=== PATIENT | female | born 1950 | race Caucasian/White ===

== ENCOUNTER → 2016-10-10 | Outpatient (CLI) | payer OTHER ==
[2015-10-26 15:10] VITALS: BP 110/50
[~2016-10-10] MED LIST: ALPR0.5T6 PO; ASPI325T4 PO; BUTA1CAP29 PO; BUTA1TAB23 PO; ERYT250C8 PO; ESCI20TA PO; ESZO2TAB PO; LISI1TAB5 PO; LOVA20TA2 PO; OMEP20CA9 PO; OXYC1TAB7 PO; PANT40TA5 PO; ZOLP10TA4 PO
--- NOTE | 2016-10-10 16:46 | RAD ---
Carotid ultrasound, 10/10/2016: History: Carotid stenosis Duplex evaluation of the carotid arteries in the neck was performed including grayscale, color-flow and spectral Doppler analysis. There are moderate scattered plaques in the common carotid arteries and at the carotid bifurcations. The plaques are partially calcified. On the right, the peak systolic velocity in the internal carotid artery is 100 cm/s. With an end-diastolic velocity of 33 cm/s. The internal carotid to common carotid artery ratio is 1.3. On the left the peak systolic velocity in the internal carotid artery is 118 cm/s with an end-diastolic velocity of 27 cm/s. The internal carotid artery to common carotid artery ratio is 1.2. These Doppler findings suggest narrowing in the 0-50% diameter range. Antegrade flow is present in both vertebral arteries in the neck. IMPRESSION: Moderate atherosclerotic plaquing at both carotid bifurcations with underlying luminal narrowing in the 0-50% diameter range bilaterally. Note: Stenosis calculations for CT, MRA and conventional angiography are based upon determination of the distal ICA diameter in accordance with the NASCET methodology. Stenosis calculations for Doppler studies are derived from validated velocity criteria which are known to correlate with NASCET methodology of determining stenosis.
== END | disposition home or self-care (01) ==
LOC: US 15:04
PROVIDERS: ATTEND Psychiatry & Neurology Neurology
DX: I65.23 Occlusion and stenosis of bilateral carotid arteries (principal)
CPT/HCPCS: 93880

== ENCOUNTER → 2018-04-08 | Outpatient (CLI) | payer OTHER ==
[2015-10-26 15:10] VITALS: BP 110/50
[~2018-04-08] MED LIST changes: -ASPI325T4 PO; +ASPI325T8 PO; -ESCI20TA PO; +ESCITALOPRAM OX20 MG PO; -ESZO2TAB PO; +ESZO2TAB26 PO
--- NOTE | 2018-04-08 10:50 | RAD ---
DATE: 04/08/2018 EXAM: MAMMO FRED LEILA BILAT, BREAST BILATERAL HISTORY: Left breast lump COMPARISON: None available This study was interpreted with the benefit of Computerized Aided Detection (CAD). Breast Density: HETERO The breast parenchyma is heterogenously dense, which could reduce sensitivity of mammography. Breast parenchyma level C. FINDINGS: Bilateral breast implants are in place. Routine and implant exclusion views were obtained of both breasts in the CC and MLO projections. 3-D tomosynthesis imaging was also performed with an implant exclusion technique. The breast implants are unremarkable. There are multiple coarse benign type calcifications in both breasts. No breast mass or suspicious microcalcifications are seen. A skin marker was placed on the skin surface laterally on the left in the area of reported palpable concern. No underlying mass is seen. Left breast ultrasound, 04/08/2018: A targeted ultrasound exam of the left breast was performed at the 3:00 location in the area of palpable concern. There is only a small amount of breast tissue evident along the anterior aspect of the implant at this level. No mass or unusual fluid collection is seen. IMPRESSION: 1. Bilateral breast implants. 2. No mammographic evidence of malignancy in either breast. 3. No mammographic or sonographic correlate is identified for the area of palpable concern in the left breast. Clinical surveillance is suggested. BI-RADS CATEGORY: 2 BENIGN FINDING(S) RECOMMENDED FOLLOW-UP: 12M 12 MONTH FOLLOW-UP PQRS compliance statement: Patient information was entered into a reminder system with a target due date for the next mammogram. Mammography is a sensitive method for finding small breast cancers, but it does not detect them all and is not a substitute for careful clinical examination. A negative mammogram does not negate a clinically suspicious finding and should not result in delay in biopsying a clinically suspicious abnormality. "Our facility is accredited by the [employer] Mammography Program."
== END | disposition home or self-care (01) ==
LOC: MAMMO 09:33
PROVIDERS: ATTEND Family Medicine
DX: N63.42 Unspecified lump in left breast, subareolar (principal); R92.1 Mammographic calcification found on diagnostic imaging of breast
CPT/HCPCS: 76641; 77066; G0279; 77062

== ENCOUNTER → 2018-06-04 | Outpatient (CLI) | payer OTHER ==
[2015-10-26 15:10] VITALS: BP 110/50
--- NOTE | 2018-06-04 16:35 | RAD ---
Examination: CT LOW DOSE LUNG SCREENING History: LUNG CA SCREENING 06/17 PPD HISTORY SMOKER NO PREV Comparison/Correlation: None Findings: Axial images of the chest were obtained without contrast according to low-dose lung cancer screening CT protocol. Incidental note is made of bilateral breast implants. The tracheobronchial tree is unremarkable. Severe centrilobular emphysematous involvement of the lung aguayo is present. There is no suspicious pulmonary nodule or mass lesion. No suspicious consolidation. No pleural or pericardial effusion. No enlarged thoracic lymph nodes. Significant calcification of the right common carotid artery is incidentally seen. Significant calcification of the left circumflex, left main, and right coronary arteries is present especially at the proximal aspects. Opacification of the thoracic aorta noted. Partially visualized abdomen is unremarkable other than significant opacification of the abdominal aorta. Bony structures are unremarkable for patient's age. Impression: Lungs rads category 1-negative. Annual low-dose lung cancer screening CT should be considered. Severe centrilobular emphysema. Electronically signed by: Ad Rico MD (06/04/2018 4:31 PM) [facility]
== END | disposition home or self-care (01) ==
LOC: CT 10:35
PROVIDERS: ATTEND Family Medicine
DX: Z12.2 Encounter for screening for malignant neoplasm of respiratory organs (principal); J43.2 Centrilobular emphysema; Z87.891 Personal history of nicotine dependence
CPT/HCPCS: G0297

== ENCOUNTER → 2019-08-12 | Outpatient (CLI) | payer MEDICARE ==
[2019-01-05 10:20] VITALS: BP 133/88
[~2019-08-12] MED LIST changes: +LISI1TAB19 PO; -LISI1TAB5 PO; +OMEP20CA16 PO; -OMEP20CA9 PO; -PANT40TA5 PO; +PANT40TA77 PO; +SUCR1TAB35 PO
--- NOTE | 2019-08-12 14:25 | KCIC ---
INDICATION: Atherosclerosis COMPARISON: None. TECHNIQUE: Color, grayscale and doppler ultrasound images obtained of the carotid system bilaterally. Percent stenosis is estimated using criteria that correlates with NASCET methodology. FINDINGS: Peak systolic velocities are as follows in cm/s: Right Carotid System: CCA: 99 ICA: 152 ICA/CCA Ratio 1.5 Left Carotid System: CCA: 84 ICA: 202 ICA/CCA Ratio 2.4 Vertebral arteries are antegrade bilaterally. Multifocal plaque is visualized. IMPRESSION: * Elevated velocity within the left greater than right internal carotid artery correlating with 50-69% stenosis. Electronically signed by: Gabo Brown MD (08/12/2019 2:22 PM) [facility] [place]
--- NOTE | 2019-08-12 15:31 | KCIC ---
EXAM: Abdominal aortic sonogram. HISTORY: Aortic aneurysm screening. Cigarette smoking. TECHNIQUE: Sonographic imaging of the abdominal aorta was performed. COMPARISON: None. FINDINGS: The proximal abdominal aorta measures 2.9 cm in caliber. The mid abdominal aorta measures 1.7 cm in caliber. The distal abdominal aorta measures 1.6 cm in caliber. The common iliac arteries measure 0.6 cm in caliber. There is calcified atherosclerotic plaque throughout the aorta and iliac bifurcation. IMPRESSION: 1. Ectatic proximal abdominal aorta. No aneurysm is seen. 2. Calcified atherosclerotic plaque throughout the aorta and iliac bifurcation. Electronically signed by: Janny Trevino MD (08/12/2019 3:28 PM) [id number]
--- NOTE | 2019-08-12 17:29 | KCIC ---
CT LOW DOSE LUNG SCREENING INDICATION: Tobacco abuse. Follow-up lung screening. DEMOGRAPHICS: 68-year-old female current smoker with 50 pack year smoking history COMPARISON STUDY: 06/04/2018. TECHNIQUE: Unenhanced axial images were obtained through the lungs and upper abdomen using low dose technique. Coronal and sagittal multiplanar reformatted images were also obtained. PQRS compliance statement: One or more of the following individualized dose reduction techniques were utilized for this examination: 1. Automated exposure control 2. Adjustment of the mA and/or kV according to patient size 3. Use of iterative reconstruction technique FINDINGS: Lung Nodules: There are a couple of small less than 6 mm pulmonary nodules with software support representative nodules as follows: Stable left lower lobe solid pulmonary nodule measuring 0.3 cm (series 6 image 172) and stable right lower lobe solid pulmonary nodule measuring 0.4 cm (image 122). Lungs and Airways: No pulmonary mass or consolidation. Severe centrilobular emphysema with hyperinflated lungs. Scattered endobronchial mucous plugging. Pleura: Normal pleural spaces. Heart and Mediastinum: The visualized portions of the thyroid gland are normal in size and attenuation. No axillary or supraclavicular lymphadenopathy. No mediastinal, hilar or retrocrural lymphadenopathy. Normal cardiac size. Coronary artery atherosclerotic disease. No pericardial effusion. Atherosclerosis of the thoracic aorta. Abdomen: The visualized abdominal organs demonstrate no abnormality. Bones and Soft Tissues: Degenerative changes of the spine. IMPRESSION: 1. Few less than 6 mm pulmonary nodules with benign appearance or behavior. Lung-RADS Category: 2 Management Recommendation: Follow up low-dose chest CT in one year. 2. Severe emphysema. Electronically signed by: Aquilino Peter MD (08/12/2019 5:26 PM) [id number]
== END | disposition home or self-care (01) ==
LOC: KCIC US 12:02
PROVIDERS: ATTEND Nurse Practitioner Family
DX: Z12.2 Encounter for screening for malignant neoplasm of respiratory organs (principal); I65.23 Occlusion and stenosis of bilateral carotid arteries; I77.811 Abdominal aortic ectasia; I25.10 Atherosclerotic heart disease of native coronary artery without angina pectoris; J43.2 Centrilobular emphysema; R91.8 Other nonspecific abnormal finding of lung field; I70.0 Atherosclerosis of aorta; F17.210 Nicotine dependence, cigarettes, uncomplicated; T17.890A Other foreign object in other parts of respiratory tract causing asphyxiation, initial encounter; X58.XXXA Exposure to other specified factors, initial encounter; Y93.89 Activity, other specified; Y92.89 Other specified places as the place of occurrence of the external cause; Y99.8 Other external cause status
CPT/HCPCS: 76770; 93880; G0297

== ENCOUNTER → 2021-03-09 | Outpatient (CLI) | payer BC, MEDICAID ==
[2019-01-05 10:20] VITALS: BP 133/88
[~2021-03-09] MED LIST changes: +ERYT250C33 PO; -ERYT250C8 PO; -LISI1TAB19 PO; +LISI1TAB37 PO
--- NOTE | 2021-03-09 12:43 | CARD ---
MR#: [id number] Date of Study: 03/09/2021 Ordering Physician: MEGHAN RIOS, Referring Physician: MEGHAN RIOS, Tech: Dawood Mckay APPROVED REPORT EXAM: Two-dimensional and M-mode echocardiogram with Doppler and color Doppler. Other Information Quality : AverageHR: 76bpm Rhythm : NSR INDICATION Dyspnea RISK FACTORS Family History Smoking Severe Emphysema 2D DIMENSIONS Left Atrium(2D)3.0 (1.6-4.0cm)IVSd0.9 (0.7-1.1cm) Aortic Root(2D)2.8 (2.0-3.7cm)LVDd3.8 (3.9-5.9cm) LVOT Diameter1.9 (1.8-2.4cm)PWd0.9 (0.7-1.1cm) LVDs2.2 (2.5-4.0cm)FS (%) 41.2 % SV45.0 mlLVEF(%)72.8 (>50%) Aortic Valve AoV Peak Melvin.111.1cm/sAoV VTI26.7cm AO Peak GR.4.9mmHgLVOT Peak Melvin.100.7cm/s AO Mean GR.3mmHgAVA (VMAX)2.61cm2 Mitral Valve MV E Nsenzjig380.6cm/sMV E Peak Gr.6mmHg MV DECEL [id number] A Udkguuws122.0cm/s MV E Mean Gr.3mmHgE/A Ratio0.9 Pulmonary Valve PV Peak Itpkrefq143.8cm/s Tricuspid Valve TR P. Eqrqzpbc956yj/sTR Peak Gr.32mmHg Pulmonary Vein S1 Ldtkvluh03.2cm/sD2 Lxxjdffz45.2cm/s LEFT VENTRICLE The left ventricle is normal size. There is normal left ventricular wall thickness. The left ventricu lar systolic function is normal. The Ejection Fraction is 60-65%. There is normal LV segmental wall m otion. Transmitral Doppler flow pattern is Grade I-abnormal relaxation pattern. No left ventricle thr ombus noted on this study. There is no ventricular septal defect visualized. There is no left ventric ular aneurysm. There is no mass noted in the left ventricle. RIGHT VENTRICLE The right ventricle is normal size. There is normal right ventricular wall thickness. The right ventr icular systolic function is normal. ATRIA The left atrium size is normal. The right atrium size is normal. The interatrial septum is intact wit h no evidence for an atrial septal defect or patent foramen ovale as noted on 2-D or Doppler imaging. AORTIC VALVE The aortic valve is mildly sclerotic. Doppler and Color Flow revealed no significant aortic regurgita tion. There is no significant aortic valvular stenosis. There is no aortic valvular vegetation. MITRAL VALVE The mitral valve is mildly thickened. There is no evidence of mitral valve prolapse. There is no mitr al valve stenosis. Doppler and Color-flow revealed trace mitral regurgitation. TRICUSPID VALVE The tricuspid valve is normal in structure and function. Doppler and Color Flow revealed trace to mil d tricuspid regurgitation. The PA pressure was estimated at 40 mmHg. There is no tricuspid valve prol apse or vegetation. There is no tricuspid valve stenosis. PULMONIC VALVE The pulmonary valve is normal in structure and function. Doppler and Color Flow revealed no pulmonic valvular regurgitation. There is no pulmonic valvular stenosis. GREAT VESSELS The aortic root is normal in size. The ascending aorta is normal in size. The pulmonary artery is nor mal. The IVC is normal in size and collapses >50% with inspiration. PERICARDIAL EFFUSION There is no pleural effusion. There is no evidence of significant pericardial effusion. Critical Notification Critical Value: No <Conclusion> The left ventricular systolic function is normal. The Ejection Fraction is 60-65%. There is normal LV segmental wall motion. Transmitral Doppler flow pattern is Grade I-abnormal relaxation pattern. Trace mitral regurgitation. Trace to mild tricuspid regurgitation. The PA pressure was estimated at 40 mmHg. There is no evidence of significant pericardial effusion. Signed by : David Stone, Electronically Approved : 03/09/2021 12:42:48
== END ==
LOC: ECHO 11:00
PROVIDERS: ATTEND Nurse Practitioner Family
DX: I08.2 Rheumatic disorders of both aortic and tricuspid valves (principal); R06.01 Orthopnea; R06.02 Shortness of breath
CPT/HCPCS: 93306

== ENCOUNTER → 2021-09-10 | Outpatient (CLI) | payer MEDICARE, MEDICAID ==
[2019-01-05 10:20] VITALS: BP 133/88
--- NOTE | 2021-09-10 15:44 | RAD ---
Bilateral digital screening 2-D and 3-D (digital breast tomosynthesis) mammogram: Reason for examination: Routine screening. Comparison: Mammogram from 04/08/2018. Left breast ultrasound from 04/08/2018. Interpretation was made with the benefit of CAD. FINDINGS: Breast density: Category B. There are scattered areas of fibroglandular density. No malignant appearing calcifications, or architectural distortion is seen. There is a 5 mm oval asym metry in the retroareolar region of the right breast about 2 cm posterior to the nipple on the CC vie w. This may correspond to asymmetry seen the level the nipple line on the MLO implant displaced image s. No suspicious left breast mass, malignant appearing calcifications, or architectural distortion is seen. The bilateral retropectoral saline breast implants are unremarkable. IMPRESSION: Asymmetry in the retroareolar region of the right breast. Further evaluation with right breast ultras ound is recommended. Assessment: BI-RADS 0. Incomplete. Additional imaging is recommended. Recommendation: Targeted right breast ultrasound. The patient be contacted with results and asked to schedule for additional imaging. The patient will receive a letter with the results in the mail. Patient information will be entered into the mammograp [employer] reminder system with a target recall date for the next mammogram. A reminder letter will be genera kimberly. Electronically signed by: Cristal Andrea MD (09/10/2021 3:42 PM) [email or web address]
== END ==
LOC: MAMMO 12:47
PROVIDERS: ATTEND Nurse Practitioner Family
DX: Z12.31 Encounter for screening mammogram for malignant neoplasm of breast (principal)
CPT/HCPCS: 77063; 77067

== ENCOUNTER → 2021-09-13 | Outpatient (CLI) | payer MEDICARE, MEDICAID ==
[2019-01-05 10:20] VITALS: BP 133/88
--- NOTE | 2021-09-13 14:45 | RAD ---
EXAMINATION: Right breast ultrasound INDICATION: Patient presents for follow-up ultrasound of asymmetry in the retroareolar region seen on recent screening right breast mammogram COMPARISON: Screening mammogram from 09/10/2021 FINDINGS: Targeted right breast ultrasound at the 12:00 position, 2 cm deep to the nipple reveals a o sharron hypoechoic circumscribed mass along the capsular margin in a parallel orientation measuring up to 4.5 mm. There is no suspicious vascularity. Evaluating the posterior characteristics is degraded sec ondary to the underlying saline implant. This likely correlates with the mammographic finding. Additi onal real-time ultrasound was conducted by myself at the 9:00 position, anterior to posterior depth w hich demonstrated normal fibroglandular tissue and saline implant. Additional ultrasound at the 6:00 position reveals a circumscribed round hypoechoic mass with peripheral echogenicity measuring up to 3 mm, the appearance favors a benign oil cyst. Right axillary lymph nodes are unremarkable. IMPRESSION: BI-RADS 3, probably benign findings. Advise another 6 month mammographic follow-up to ens ure stability. Targeted right breast ultrasound may also be performed if indicated. Electronically signed by: Tavares Vallejo DO (09/13/2021 2:43 PM) [id number]
== END ==
LOC: US 13:49
PROVIDERS: ATTEND Nurse Practitioner Family
DX: N63.12 Unspecified lump in the right breast, upper inner quadrant (principal); N63.13 Unspecified lump in the right breast, lower outer quadrant
CPT/HCPCS: 76641

== ENCOUNTER → 2021-10-03 | Outpatient (CLI) | payer MEDICARE, MEDICAID ==
[2019-01-05 10:20] VITALS: BP 133/88
--- NOTE | 2021-10-03 14:13 | KCIC ---
EXAM: CT CHEST WITHOUT CONTRAST HISTORY: Lung nodule, smoker for 50 years. COPD, hypertension, hyperlipidemia COMPARISON: CT chest 08/12/2019 TECHNIQUE: Helical CT of the chest performed without contrast. Coronal and sagittal reformats were o btained. One or more of the following individualized dose reduction techniques were utilized for this examinat ion: 1. Automated exposure control 2. Adjustment of the mA and/or kV according to patient size 3. Use of iterative reconstruction technique. FINDINGS: Thyroid gland and thoracic inlet: Normal. Heart and great vessels: The heart is normal in size. No pericardial effusion. There are coronary art rohini calcifications. The thoracic aorta is normal in caliber. There is mild to moderate calcified aort ic atherosclerosis including at the great vessel origins. Mediastinum and benigno: No mediastinal or hilar lymphadenopathy. Lungs and pleura: There is a new 1.6 x 1.3 cm spiculated nodule in the medial right lower lobe, highl y suspicious for malignancy (image 114, series 6). There is severe centrilobular emphysema. Mild diff use airway wall thickening. No pleural effusion or pneumothorax. Chest wall and axillae: There are bilateral breast implants. No axillary lymphadenopathy. Upper abdomen: Unremarkable. Bones: No acute osseous abnormality. IMPRESSION: 1. New 1.6 cm thick images nodule in the medial right lower lobe highly suspicious for malignancy. R ecommend biopsy or PET/CT to further evaluate. 2. Severe emphysema. FOR INTERNAL CODING PURPOSES Critical result: A voice message was left on Hailee Oli's nurse's line at 10/03/2021 2:07 PM. RESULT CODE: (C) Electronically signed by: Sana Posada MD (10/03/2021 2:10 PM) [id number]
== END ==
LOC: KCIC CT 12:59
PROVIDERS: ATTEND Nurse Practitioner Family
DX: R91.1 Solitary pulmonary nodule (principal); J43.9 Emphysema, unspecified; I25.10 Atherosclerotic heart disease of native coronary artery without angina pectoris; I70.0 Atherosclerosis of aorta
CPT/HCPCS: 71250